=== PATIENT | female | born 1940 | race Caucasian/White ===

== ENCOUNTER 2016-12-21 21:57 | Emergency (ER) | payer MEDICARE, OTHER ==
[~2016-12-21 21:57] MED LIST: *UNABLE1; ASAB PO; ATV.5 PO; BACDS PO; CALTRA600D PO; COZAAR100 MG PO; FLECAINIDE; FLECAINIDE50 MG PO; FOSAMAX70 MG PO; LEVAQUIN750 MG PO; LOP25 PO; LOP50 PO; NIFEDIPINE; NO HOME MEDS; PRILO PO; TAMBOCOR PO; TESS PO; VITAMIN D1000 UNI1 PO; VITAMIN D31000 UNIT PO
== END 2016-12-21 23:50 | disposition home or self-care (01) ==
LOC: ER 21:57
DX: S09.90XA Unspecified injury of head, initial encounter (principal); S80.11XA Contusion of right lower leg, initial encounter; Z88.5 Allergy status to narcotic agent; Z88.8 Allergy status to other drugs, medicaments and biological substances; W19.XXXA Unspecified fall, initial encounter
CPT/HCPCS: 70450; 72125; 73590-RT; 99284

== ENCOUNTER 2017-01-06 22:59 | Emergency (ER) | payer MEDICARE, OTHER | END 2017-01-07 01:34 | disposition home or self-care (01) | LOC: ER 22:59 | DX: M79.604 Pain in right leg (principal); R42 Dizziness and giddiness; I10 Essential (primary) hypertension; K21.9 Gastro-esophageal reflux disease without esophagitis; F32.9 Major depressive disorder, single episode, unspecified; F41.9 Anxiety disorder, unspecified; M81.0 Age-related osteoporosis without current pathological fracture; Z87.891 Personal history of nicotine dependence; Z86.73 Personal history of transient ischemic attack (TIA), and cerebral infarction without residual deficits; Z90.710 Acquired absence of both cervix and uterus; Z88.5 Allergy status to narcotic agent; Z88.8 Allergy status to other drugs, medicaments and biological substances; Z79.82 Long term (current) use of aspirin; Z79.899 Other long term (current) drug therapy | CPT/HCPCS: 70450; 93971; 99283; A9270-GY ==